=== PATIENT | female | born 1975 | race Caucasian/White ===

== ENCOUNTER → 2019-12-12 08:08 | Outpatient (CLI) | payer BC, SELFPAY ==
--- NOTE | 2019-12-12 08:19 | US_ITS ---
PROCEDURE: US TRANSVAGINAL CLINICAL INDICATION: LOWER ABD PAIN COMPARISON: No exams were available for comparison FINDINGS: UTERUS: 7cm x 5cmx 4cm with a combined endometrial thickness of 6.4mm LEFT OVARY: [id number] with a volume of 7.2ml. RIGHT OVARY: [id number] with a volume of 5.9ml. Small nabothian cysts are present. Along the lower aspect of the body of the uterus posteriorly there is a 3 x 2.5 x 1.9 cm area of decreased echogenicity consistent with fibroid. There is a 2nd 3 x 2 cm fibroid along the anterior aspect of the body of the uterus. No adnexal mass. Bilateral ovarian blood flow is noted with small bilateral follicles. There is a 1.8 cm right ovarian cyst. IMPRESSION: 1. Uterine fibroids 2. 1.8 cm right ovarian cyst Dictated b Nikhil Aguero MD 12/12/2019 17:11 Nikhil Aguero MD in [place] 12/12/2019 17:11
== END ==
PROVIDERS: PCP Nurse Practitioner; Visit Provider Family Medicine
DX: R10.30 Lower abdominal pain, unspecified (principal)
CPT/HCPCS: 76830

== ENCOUNTER → 2020-01-24 15:55 | Outpatient (CLI) | payer BC, SELFPAY ==
[2020-01-24 16:38] LABS: Basophils # 0.1 K/mm3 (0-0.2); Basophils % 0.5 % (0.1-2.0); Eosinophils # 0.3 K/mm3 (0.0-0.4); Eosinophils % 2.2 % (0.1-12.0); Hematocrit 37.9 % (37.0-47.0); Hemoglobin 13.6 g/dL (12.2-16.2); Lymphocytes # 3.2 K/mm3 (0.7-4.5); Lymphocytes % 28.6 % (10-50); Mean Corpuscular HGB Conc 35.8 g/dL (31.8-35.4); Mean Corpuscular Hemoglobin 31.6 pg (27.0-31.2); Mean Corpuscular Volume 88.2 fl (81-99); Mean Platelet Volume 8.7 fl (7.4-10.4); Monocytes # 0.4 K/mm3 (0.1-1.0); Monocytes % 3.9 % (1.7-9.3); Neutrophils # 7.2 K/mm3 (1.8-7.8); Neutrophils % 64.8 % (37.0-80.0); Platelet Count 234 K/mm3 (142-424); Red Cell Distribution Width 13.4 % (11.5-17.5); White Blood Count 11.1 K/mm3 (4.8-10.8)
[2020-01-24 17:27] LABS: Strep Scrn Group A (Rapid) Negative (Negative)
[2020-01-26 17:15] LABS: Covid-19 Nasal PCR Sendout UK NOT DETECTED
== END ==
PROVIDERS: PCP Nurse Practitioner; Visit Provider Nurse Practitioner
DX: Z03.818 Encounter for observation for suspected exposure to other biological agents ruled out (principal)
CPT/HCPCS: 85025; 87275; 87276; 87430; U0003

== ENCOUNTER → 2020-08-27 09:47 | Outpatient (CLI) | payer BC, SELFPAY ==
--- NOTE | 2020-08-27 09:51 | MM_ITS ---
PROCEDURE INFORMATION: Exam: MG Screening 3D Mammography Exam date and time: 08/27/2020 9:51 AM Age: 45 years old Clinical indication: Screening mammogram. Family history of breast carcinoma TECHNIQUE: Imaging protocol: Screening tomosynthesis and 2D mammography including computer-aided detection (CAD) when performed. COMPARISON: No relevant prior studies available. FINDINGS: MAMMOGRAPHY: Breast composition: There are scattered areas of fibroglandular density. Mass: No new suspicious masses. Architectural distortion: No suspicious distortion. Calcifications: No suspicious calcifications. Asymmetric density: There are 2 questionable asymmetries in the right breast. Dominant 2 cm asymmetry in the right upper outer quadrant, posterior depth, best seen on MLO frame 37. Additional 0.8 cm stellate asymmetry in the upper right breast, middle to posterior depth, only well seen on MLO frame 21. Skin thickening: None. Axillary adenopathy: None. IMPRESSION: Recommend right breast spot compression CC/MLO views and ultrasound for further evaluation of 2 questionable asymmetries in the upper right breast. No definite mammographic evidence of malignancy in the left breast. ASSESSMENT: BI-RADS Category 0: Incomplete- Need Additional Imaging Evaluation and/or Prior Mammograms for Comparison
== END ==
PROVIDERS: PCP Nurse Practitioner; Visit Provider Obstetrics & Gynecology
DX: Z12.31 Encounter for screening mammogram for malignant neoplasm of breast (principal)
CPT/HCPCS: 77063; 77067

== ENCOUNTER → 2020-09-08 14:36 | Outpatient (CLI) | payer BC, SELFPAY ==
--- NOTE | 2020-09-08 14:36 | MM_ITS ---
PROCEDURE: MM DIG MAMM DX UNILAT RT CAD Digital Breast Tomosynthesis Included CLINICAL INDICATION: abnormal mamm COMPARISON: MG MM DIG SCREENING MAMM BI W/CAD from 08/27/2020 US US BREAST RT COMPLETE from 09/08/2020 TECHNIQUE: ML, and spot compression CC and MLO images were obtained. FINDINGS: The breast is composed of scattered fibroglandular tissue. Finding 1: The spiculated appearing density in the right upper outer quadrant, persists on compression MLO images. No evident evidence of associated soft tissue mass is noted. Finding 2: Asymmetric density noted on the prior MLO and CC image demonstrates no discrete mass lesions. This most likely represents composite shadowing secondary to overlapping soft tissues. Corresponding ultrasound demonstrates a focal heterogeneous echogenic area at 10 o'clock position without evidence of suspicious mass lesions. Ultrasound otherwise demonstrate no focal abnormality. IMPRESSION: Probably benign finding. BI-RAD Category: 3 Probably Benign Finding Short Term Follow-up FOLLOW-UP: 6M 6Month Follow-up (A letter has been sent to the patient regarding results of the study.) Dictated by: Pamela Marroquin 09/10/2020 12:52 Pamela Marroquin in [facility] 09/10/2020 12:52
--- NOTE | 2020-09-08 14:36 | US_ITS ---
PROCEDURE: US BREAST RT COMPLETE CLINICAL INDICATION: Abnormal mamm COMPARISON: No exams were available for comparison FINDINGS: There is focal heterogeneously echogenic ill distinct area noted in the right breast at 10 o'clock position measuring 1.8 x 0.8 centimeters, demonstrates hyper echogenicities. No suspicious masses. Axillary lymph nodes measuring up to 1.9 times 0.8 centimeters with central fatty hilum and normal morphology. IMPRESSION: No suspicious masses. Probably benign finding. BI-RADS category 3. Ultrasound follow-up in six months is recommended. Dictated by: Pamela Marroquin 09/10/2020 12:54 Pamela Marroquin in [facility] 09/10/2020 12:54
== END ==
PROVIDERS: PCP Nurse Practitioner; Visit Provider Obstetrics & Gynecology
DX: R92.8 Other abnormal and inconclusive findings on diagnostic imaging of breast (principal)
CPT/HCPCS: 76641; 77061; 77065; G0279

== ENCOUNTER → 2020-12-07 16:18 | Outpatient (CLI) | payer BC, SELFPAY ==
--- NOTE | 2020-12-07 16:24 | XR_ITS ---
PROCEDURE: XR CHEST 2V CLINICAL HISTORY: CHEST PAIN, PALPITATIONS COMPARISON: No exams were available for comparison FINDINGS: The cardiomediastinal silhouette and pulmonary vascularity are within normal limits. The lungs are clear without infiltrates, suspicious nodules, or pleural effusions. No acute bony abnormalities. IMPRESSION: No acute findings. Dictated by: Nikhil Aguero MD 12/07/2020 16:45 Nikhil Aguero MD in [place] 12/07/2020 16:45
--- NOTE | 2020-12-07 16:42 | ECG_ITS ---
APPROVED REPORT Exam: Resting ECG HR:68 bpm ECG Measurements Heart Rate [address] 130 P 43 QRSd 90 QRS 79 QT 428 T 62 QTc 455 Conclusion Normal sinus rhythm Normal ECG Electronically signed by : Janusz Cheng MD 12/08/2020 21:04:41
== END ==
PROVIDERS: PCP Nurse Practitioner; Visit Provider Nurse Practitioner
DX: R07.9 Chest pain, unspecified (principal); R00.2 Palpitations
CPT/HCPCS: 71046; 93005; 93225; 93226

== ENCOUNTER → 2021-03-12 12:34 | Outpatient (CLI) | payer BC, SELFPAY ==
--- NOTE | 2021-03-12 12:34 | US_ITS ---
PROCEDURE: US BREAST RT COMPLETE CLINICAL INDICATION: abnormal mammogram COMPARISON: US US BREAST RT COMPLETE from 09/08/2020 MG MM DIG MAMM DX UNILAT RT CAD from 09/08/2020 FINDINGS: No suspicious mass. No cyst demonstrated. Previously noted areas of heterogeneous echogenicity in the outer right breast 10 o'clock are once again noted consistent with fibroglandular tissue. IMPRESSION: Benign findings. BI-RADS category 2, benign. Recommend resume bilateral screening mammogram in July of 2021 Dictated by: Nikhil Aguero MD 03/22/2021 07:52 Nikhil Aguero MD in [place] 03/22/2021 07:52
== END ==
PROVIDERS: PCP Nurse Practitioner; Visit Provider Obstetrics & Gynecology
DX: R92.8 Other abnormal and inconclusive findings on diagnostic imaging of breast (principal)
CPT/HCPCS: 76641

== ENCOUNTER → 2022-02-11 07:47 | Outpatient (CLI) | payer BC, SELFPAY ==
--- NOTE | 2022-02-11 08:09 | MM_ITS ---
PROCEDURE INFORMATION: Exam: MG Bilateral Diagnostic Breast Tomosynthesis Exam date and time: 02/11/2022 8:01 AM Age: 47 years old Clinical indication: Six-month follow-up has been recommended for asymmetries in the right breast, from 08/27 and 09/08/2020 and followed on sonography 09/08/2020 and03/12/2021, and screening. Her mother had breast cancer. TECHNIQUE: Imaging protocol: Bilateral Diagnostic tomosynthesis and 2D mammography including computer-aided detection (CAD) when performed. Unilateral or bilateral exam. COMPARISON: 1. MG MM DIG MAMM DX UNILAT RT CAD 09/08/2020 2:40 PM 2. MG MM DIG SCREENING MAMM BI W/CAD 08/27/2020 9:57 AM 3. US BREAST RT COMPLETE 03/12/2021 12:54 PM 4. US BREAST RT COMPLETE 09/08/2020 3:03 PM FINDINGS: MAMMOGRAPHY: Breast composition: There are scattered areas of fibroglandular density. Mass: None. Architectural distortion: None. Calcifications: No suspicious calcifications. Asymmetric density: Stable focal asymmetries in the right upper outer quadrant and in the right upper breast middle 3rd on the MLO, since 08/27/2020 (with related negative sonography 03/12/2021). Skin thickening: None. Axillary adenopathy: None. IMPRESSION: Stable focal asymmetries in the right upper outer quadrant and asymmetry in the right upper breast, clinical correlation to the upper breast is recommended, if negative if clinically, continued six-month follow-up right diagnostic mammogram is recommended. ASSESSMENT: BI-RADS Category 3: Probably benign
== END ==
PROVIDERS: PCP Nurse Practitioner; Visit Provider Obstetrics & Gynecology
DX: Z12.31 Encounter for screening mammogram for malignant neoplasm of breast (principal)
CPT/HCPCS: 77063; 77067

== ENCOUNTER → 2022-03-29 11:09 | Outpatient (CLI) | payer BC, SELFPAY ==
[2022-03-29 19:37] LABS: Adenovirus,PCR Not Detected (NotDetected); Bordetella Pertussis Not Detected (NotDetected); Chlamydophila Pneumoniae, PCR Not Detected (NotDetected); Coronavirus 19, PCR Not Detected (NotDetected); Coronavirus 229E Not Detected (NotDetected); Coronavirus NL63 Not Detected (NotDetected); Coronavirus OC43 Not Detected (NotDetected); Coronovirus HKU1,PCR Not Detected (NotDetected); Human Metapneumovirus Not Detected (NotDetected); Influenza AH1, 2009 Not Detected (NotDetected); Influenza AH1, PCR Not Detected (NotDetected); Influenza AH3,PCR Not Detected (NotDetected); Influenza B, PCR Not Detected (NotDetected); Mycoplasma Pneumoniae, PCR Not Detected (NotDetected); Parainfluenza 1, PCR Not Detected (NotDetected); Parainfluenza 2, PCR Not Detected (NotDetected); Parainfluenza 3, PCR Not Detected (NotDetected); Parainfluenza 4, PCR Not Detected (NotDetected); Respiratory Syncytial Virus Not Detected (NotDetected); Rhinovirus/Enterovirus Not Detected (NotDetected)
[2022-03-31 09:22] LABS: Influenza A, PCR Detected (NotDetected)
== END ==
PROVIDERS: PCP Nurse Practitioner; Visit Provider Nurse Practitioner
DX: J06.9 Acute upper respiratory infection, unspecified (principal); J10.1 Influenza due to other identified influenza virus with other respiratory manifestations
CPT/HCPCS: 87581; 87632; 87798; C9803; U0003; U0005

== ENCOUNTER → 2022-06-20 23:35 | Outpatient (CLI) | payer BC, SELFPAY ==
[2022-06-20 18:15] LABS: Adenovirus,PCR Not Detected (NotDetected); Bordetella Pertussis Not Detected (NotDetected); Chlamydophila Pneumoniae, PCR Not Detected (NotDetected); Coronavirus 19, PCR Not Detected (NotDetected); Coronavirus 229E Not Detected (NotDetected); Coronavirus NL63 Not Detected (NotDetected); Coronavirus OC43 Not Detected (NotDetected); Coronovirus HKU1,PCR Not Detected (NotDetected); Influenza A, PCR Not Detected (NotDetected); Influenza AH1, 2009 Not Detected (NotDetected); Influenza AH1, PCR Not Detected (NotDetected); Influenza AH3,PCR Not Detected (NotDetected); Influenza B, PCR Not Detected (NotDetected); Mycoplasma Pneumoniae, PCR Not Detected (NotDetected); Parainfluenza 1, PCR Not Detected (NotDetected); Parainfluenza 2, PCR Not Detected (NotDetected); Parainfluenza 3, PCR Not Detected (NotDetected); Parainfluenza 4, PCR Not Detected (NotDetected); Respiratory Syncytial Virus Not Detected (NotDetected); Rhinovirus/Enterovirus Not Detected (NotDetected)
[2022-06-20 22:40] LABS: Human Metapneumovirus Detected (NotDetected)
== END ==
PROVIDERS: PCP Nurse Practitioner; Visit Provider Nurse Practitioner
DX: J06.9 Acute upper respiratory infection, unspecified (principal); J02.9 Acute pharyngitis, unspecified; B97.81 Human metapneumovirus as the cause of diseases classified elsewhere
CPT/HCPCS: 87581; 87632; 87798; C9803; U0003; U0005

== ENCOUNTER 2023-08-03 10:01 | Outpatient (CLI) | payer BC, SELFPAY ==
--- NOTE | 2023-08-03 10:02 | MM_ITS ---
PROCEDURE INFORMATION: Exam: MG Bilateral Screening 3D Mammography Exam date and time: 08/03/2023 10:01 AM Age: 48 years old Clinical indication: Screening mammogram TECHNIQUE: Imaging protocol: Bilateral Screening tomosynthesis and 2D mammography including computer-aided detection (CAD) when performed. COMPARISON: No relevant prior studies available. FINDINGS: MAMMOGRAPHY: Breast composition: There are scattered areas of fibroglandular density. Mass: None. Architectural distortion: No new or suspicious architectural distortion. Calcifications: No new or suspicious calcifications are present Asymmetric density: No new or suspicious asymmetric density is present Skin thickening: None. Axillary adenopathy: None. IMPRESSION: No mammographic evidence of malignancy. Recommend annual screening mammography unless otherwise clinically indicated. ASSESSMENT: BI-RADS category 1: Negative.
== END 2023-08-03 23:59 ==
LOC: RAD 10:02
PROVIDERS: PCP Nurse Practitioner; Visit Provider Obstetrics & Gynecology
DX: Z12.31 Encounter for screening mammogram for malignant neoplasm of breast (principal)
CPT/HCPCS: 77063; 77067

== ENCOUNTER 2023-09-25 08:00 | Emergency (ER) | payer BC, SELFPAY ==
[2023-09-25 08:10] VITALS: BP 115/84; PULSE 68; RESP 20; TEMP 37.3; O2SAT 97; BMI 34.7
[2023-09-25 08:23] LABS: UTC Strep Screen (Rapid) Positive (Negative)
--- NOTE | 2023-09-25 08:32 | ED_ITS ---
Discharge Plan Disposition Patient Disposition: Home, Self-Care Condition: Good Prescriptions Prescriptions: New azithromycin [Zithromax Z-Rowdy] 250 mg tablet See Rx Instructions .ROUTE .COMPLEX 5 Days Qty: 6 0RF Rx Instructions: For 250 mg dose pack: take 500 mg today (day 1), then 250 mg for 4 days (days 2-5) No Action fluoxetine 40 mg capsule 40 mg PO DAILY Patient Comments: TAKE 1 CAPSULE BY MOUTH EVERY DAY trazodone 50 mg tablet 50 mg PO HS PRN (Reason: Sleep) buspirone 15 mg tablet 15 mg PO BID Patient Comments: TAKE 1 TABLET BY MOUTH TWICE A DAY Referrals Follow up/Referrals: Sofia Celestin APRN [Primary Care Provider] - See instructions Activity Restrictions/Add. Instructions Additional Instructions/Restrictions: *Monitor Temp, Over the counter Motrin or Tylenol as directed/as needed Tylenol every 4 hours and Motrin every 6 hours (as long as your family doctor has told you that you can take it) for fever or pain. and straight to ER if unable to lower temp less than 101.0 after medication given *Warm salt water gargles may help to soothe the throat *Throat Lozenges? *Warm fluids like tea with honey may help to soothe the throat? *Sleep elevated *Humidifier/Vaporizer *If you did not take Penicillin shot or was unable to, start taking antibiotic immediately and make sure that you take it for the FULL length of time although you should start to feel better in 24-48 hours *change toothbrush and toothpaste 24-48 hours after starting to take antibiotics so you do not reinfect yourself Monitor Temp. Tylenol and/or Ibuprofen as needed. ER if fever is no less than 101 despite alternating Tylenol and Ibuprofen * Encourage fluids, water, Gatorade, powerade, pedialyte if /toddler/or child *Cold fluids, popsicles and ice cream may feel good on his throat Follow up IMMEDIATELY for new or worsening symptoms or no Noticeable improvement over the next 48-72 hours. 911 for difficulty breathing or swallowing Clinical Impressions Clinical Impression: Strep throat Instructions Patient Instructions: DI for Strep Throat, Strep Throat, Azithromycin Discharge ED Provider: Dinora Norwood [facility] [place] HPI General Stated complaint: sore throat, headaches, body aches Mode of Arrival: Ambulatory Source of Information: Patient Limitations: No Limitations Time Seen by Provider: 09/25/23 08:32 Description of Symptoms (Recalled from Triage Doc. by RN): PATIENT C/O SORE THROAT, EAR ACHE, AND BODY ACHES SINCE YESTERDAY HEENT Symptoms (Recalled from RN notes): Yes Resp Symptoms (Recalled from RN notes): No Skin Symptoms (Recalled from RN notes): No MS Symptoms (Recalled from RN notes): No Functional Status (Recalled from RN notes): WNL History of Present Illness Provider Complaint: Patient states that she started yesterday with sore throat, pain and pressure in ears, and body aches since yesterday States that last night her throat woke up her up hurting so bad so today she came in to get checked Related Data Home Medications Medication Instructions Recorded Confirmed fluoxetine 40 mg capsule 40 mg PO DAILY 03/29/22 09/25/23 trazodone 50 mg tablet 50 mg PO HS PRN Sleep 03/29/22 09/25/23 buspirone 15 mg tablet 15 mg PO BID 06/19/23 09/25/23 Previous Rx's Medication Instructions Recorded azithromycin 250 mg tablet See Rx Instructions PO .COMPLEX 5 09/25/23 (Zithromax Z-Rowdy) days #6 tabs Allergies Allergy/AdvReac Type Severity Reaction Status Date / Time morphine Allergy Verified 09/25/23 08:28 amoxicillin AdvReac Nausea Verified 07/17/23 15:54 Worker's Comp Is this a Worker's Comp case?: No [facility] Disclaimer: The information contained in this section may have been updated after the patient was seen, as this information can be updated by other users. Medical History (Updated 09/25/23 @ 08:38 by Dinora Norwood APRN) Migraine with aura Fracture of right ankle Wrist fracture Dog bite Family History Other Alcoholism Cancer Coronary artery disease Diabetes FHx: mental illness Substance abuse Social History Smoking Status: Never smoker alcohol intake: never current occupational status: employed Travel in the last 8 weeks: None ROS Obtained: Yes All systems reviewed & no additional complaints except as documented and Yes Systems reviewed as appropriate & no additional complaints except as documented Constitutional Constitutional: Reports system reviewed and no additional complaints, except as documented, Reports as per HPI, Reports body ache, Reports chills and Reports headache(s) ENT Ears, Nose, Mouth, and Throat: Reports system reviewed and no additional complaints, except as documented, Reports as per HPI, Reports otalgia, Reports headache(s) and Reports sore throat Cardiovascular Cardiovascular: Reports system reviewed and no additional complaints, except as documented and Reports as per HPI Respiratory Respiratory: Reports system reviewed and no additional complaints, except as documented and Reports as per HPI Gastrointestinal Gastrointestingal: Reports system reviewed and no additional complaints, except as documented and as per HPI Neurologic Neurologic: Reports headache(s) Physical Exam General General appearance: alert and in no apparent distress ENT ENT exam: Present mucous membranes moist Expanded ENT Exam TM/Canal exam: Bilateral TM: bulging Throat exam: Present tonsillar erythema and tonsillar exudate Respiratory Respiratory exam: Present normal lung sounds bilaterally; Absent respiratory distress or wheezes Cardiovascular Cardiovascular exam: Present regular rate, normal rhythm and normal heart sounds Neurological Exam Neurological exam: Present alert, oriented X3 and normal gait Medical Decision Making Jose Inquiry Pt receiving controlled substance: No Jose was queried for this patient: No Vital Signs: 09/25/23 08:10 Temperature 99.1 F Temperature Source Oral Pulse Rate [Left Brachial] 68 Respiratory Rate 20 Blood Pressure [Left Arm] 115/84 Blood Pressure Mean [Left Arm] 94 Blood Pressure Source [Left Arm] Automatic Cuff Blood Pressure Position [Left Arm] Sitting 02 Sat by Pulse Oximetry 97 Oxygen Delivery Method Room Air Lab Data Lab results reviewed: Yes I reviewed the patient's lab results. Lab Results 09/25/23 08:15: Strep Scn Rapid Clinic Positive A
[2023-09-25 08:41] VITALS: BP 115/84; PULSE 68; RESP 20; TEMP 37.3; O2SAT 97
== END 2023-09-25 08:43 | disposition home or self-care (01) ==
PROVIDERS: Emergency Provider Nurse Practitioner; PCP Nurse Practitioner
DX: J02.0 Streptococcal pharyngitis (principal); R07.0 Pain in throat; H92.03 Otalgia, bilateral
CPT/HCPCS: 87880; 99204; 99212; G0463

== ENCOUNTER 2023-09-27 09:35 | Outpatient (CLI) | payer BC, SELFPAY ==
[2023-09-27 11:17] LABS: Alanine Aminotransferase 20 U/L (12-78); Albumin Level 4.3 g/dl (3.5-5.0); Albumin/Globulin Ratio 1.5 (1.1-1.8); Alkaline Phosphatase 60 U/L (38-126); Anion Gap 13.6 mEq/L (5-15); Aspartate Amino Transferase 31 U/L (14-36); Bilirubin,Total 0.4 mg/dl (0.2-1.3); Blood Urea Nitrogen 15 mg/dl (7-17); Calcium 9.4 mg/dl (8.4-10.2); Carbon Dioxide 27 mmol/L (22.0-30.0); Chloride 101 mmol/L (98-107); Estimated Glomerular Filt Rate 90 ml/min (>60); GFR (African American) 109 ML/MIN (>60); Globulin 2.8 g/dL (1.3-3.2); Glucose 86 mg/dl (74-100); Potassium 4.6 mmoL/L (3.5-5.1); Sodium 137 mmol/L (136-145); Total Protein,Serum 7.1 g/dl (6.3-8.2)
== END 2023-09-27 23:59 | disposition home or self-care (01) ==
LOC: LAB 09:36
PROVIDERS: PCP Nurse Practitioner; Visit Provider Obstetrics & Gynecology
DX: N95.1 Menopausal and female climacteric states (principal)
CPT/HCPCS: 36415; 80053

== ENCOUNTER 2024-02-04 07:59 | Emergency (ER) | payer BC, SELFPAY ==
[2024-02-04 08:10] VITALS: BP 139/65; PULSE 114; RESP 20; TEMP 38.2; O2SAT 100; BMI 33.5
[2024-02-04 08:17] LABS: UTC Strep Screen (Rapid) Positive (Negative)
[2024-02-04 08:19] LABS: UTC Influenza A Antigen Negative (Negative)
[2024-02-04 08:20] LABS: UTC Influenza B Antigen Negative (Negative)
[2024-02-04] MEDS: cefTRIAXone 1GM VIAL 1 GM IM (08:26)
[2024-02-04] MEDS: LIDOCAINE 1% 5ML PF VIAL IM (08:27)
[2024-02-04] MEDS: DEXAMETHASONE 4MG/ML 1ML VIAL 8 MG IM (08:27)
--- NOTE | 2024-02-04 08:28 | EXP.UTC ---
Discharge Plan Disposition Patient Disposition: Home, Self-Care Condition: Good Prescriptions Prescriptions: New prednisone 20 mg tablet 20 mg PO BID 3 Days Qty: 6 0RF benzonatate 100 mg capsule 100 mg PO TIDP PRN (Reason: Cough) Qty: 30 0RF cefdinir 250 mg/5 mL suspension for reconstitution 300 mg PO BID 10 Days Qty: 120 0RF No Action fluoxetine 40 mg capsule 40 mg PO DAILY Patient Comments: TAKE 1 CAPSULE BY MOUTH EVERY DAY trazodone 50 mg tablet 50 mg PO HS PRN (Reason: Sleep) buspirone 15 mg tablet 15 mg PO BID Patient Comments: TAKE 1 TABLET BY MOUTH TWICE A DAY Veozah 45 mg tablet 45 mg PO DAILY Qty: 30 11RF methocarbamol 500 mg tablet 500 mg PO TID PRN (Reason: muscle spasm) Qty: 14 0RF fluticasone propionate [Flonase Allergy Relief] 50 mcg/actuation spray,suspension 2 spray intranasal DAILY Qty: 16 0RF Rx Instructions: administer into each nostril daily azithromycin [Zithromax Z-Rowdy] 250 mg tablet See Rx Instructions .ROUTE .COMPLEX 5 Days Qty: 6 0RF Rx Instructions: For 250 mg dose pack: take 500 mg today (day 1), then 250 mg for 4 days (days 2-5) methylprednisolone [Medrol (Rowdy)] 4 mg tablets,dose pack See Rx Instructions .Route .COMPLEX 6 Days Qty: 21 0RF Rx Instructions: taper pack; fluconazole 150 mg tablet 150 mg PO ONCE 1 Days Qty: 1 0RF Referrals Follow up/Referrals: Sofia Celestin APRN [Primary Care Provider] - See instructions Activity Restrictions/Add. Instructions Additional Instructions/Restrictions: Drink plenty of fluids. Take tylenol or ibuprofen for pain or fever. Take the medications as directed. Follow up with your regular doctor. GO TO THE ER FOR ANY WORSENING SYMPTOMS Throw your tooth brush away and get a new one. Don't start the oral steroids (medrol dose pack) until tomorrow since you had the shot here Clinical Impressions Clinical Impression: Strep throat Stand Alone Forms Stand Alone Forms: Work/School Release Instructions Patient Instructions: Strep Throat, Ceftriaxone Injection, Dexamethasone Injection Print Language Print Language: Uzbek Discharge ED Provider: Frankie Schwartz [facility] [place] HPI General Stated complaint: sore throat, vomiting, fever, body aches Mode of Arrival: Ambulatory Source of Information: Patient Time Seen by Provider: 02/04/24 08:19 Description of Symptoms (Recalled from Triage Doc. by RN): SORE THROAT, N/V, BODY ACHES, CHILLS HEENT Symptoms (Recalled from RN notes): Yes Resp Symptoms (Recalled from RN notes): Yes Skin Symptoms (Recalled from RN notes): No MS Symptoms (Recalled from RN notes): No Functional Status (Recalled from RN notes): WNL History of Present Illness Provider Complaint: She states that for the past 2 days she has had sore throat, chills, body aches and low grade fever. Related Data Home Medications ?Medication ?Instructions ?Recorded ?Confirmed fluoxetine 40 mg capsule 40 mg PO DAILY 03/29/22 12/31/23 trazodone 50 mg tablet 50 mg PO HS PRN Sleep 03/29/22 12/31/23 buspirone 15 mg tablet 15 mg PO BID 06/19/23 12/31/23 Previous Rx's ?Medication ?Instructions ?Recorded fezolinetant 45 mg tablet (Veozah) 45 mg PO DAILY #30 tabs 09/27/23 azithromycin 250 mg tablet See Rx Instructions PO .COMPLEX 5 12/31/23 (Zithromax Z-Rowdy) days #6 tabs fluconazole 150 mg tablet 150 mg PO ONCE 1 day #1 tab 12/31/23 fluticasone propionate 50 2 spray intranasal DAILY #16 grams 12/31/23 mcg/actuation nasal spray,suspension (Flonase Allergy Relief) methocarbamol 500 mg tablet 500 mg PO TID PRN muscle spasm #14 12/31/23 tabs methylprednisolone 4 mg tablets in See Rx Instructions .Route 12/31/23 a dose pack (Medrol (Rowdy)) .COMPLEX 6 days #21 tabs benzonatate 100 mg capsule 100 mg PO TIDP PRN Cough #30 caps 02/04/24 cefdinir 250 mg/5 mL oral 300 mg (6 mL) PO BID 10 days #120 02/04/24 suspension mL prednisone 20 mg tablet 20 mg PO BID 3 days #6 tabs 02/04/24 Allergies Allergy/AdvReac Type Severity Reaction Status Date / Time morphine Allergy Verified 09/27/23 09:00 amoxicillin AdvReac Nausea Verified 09/27/23 09:00 Worker's Comp Is this a Worker's Comp case?: No [facility] Disclaimer: The information contained in this section may have been updated after the patient was seen, as this information can be updated by other users. Medical History (Updated 02/04/24 @ 08:30 by Frankie Schwartz APRN) Perimenopausal symptom Amenorrhea Depression Anxiety Migraine with aura Fracture of right ankle Wrist fracture Surgical History (Updated 09/27/23 @ 09:09 by YAHAIRA Bloom) History of endometrial ablation Family History Other Alcoholism Cancer Coronary artery disease Diabetes FHx: mental illness Substance abuse Social History Smoking Status: Never smoker alcohol intake: never current occupational status: employed Travel in the last 8 weeks: None ROS Obtained: Yes All systems reviewed & no additional complaints except as documented Constitutional Constitutional: Reports chills and Reports fever(s) Eyes Eyes: Denies eye discharge ENT Ears, Nose, Mouth, and Throat: Reports as per HPI Cardiovascular Cardiovascular: Denies chest pain Respiratory Respiratory: Denies chest congestion and Reports cough Gastrointestinal Gastrointestingal: Reports nausea; Denies abdominal pain, constipation, cramping, diarrhea or vomiting Musculoskeletal Musculoskeletal: Denies arthralgias Integumentary/Breasts Skin/Breast: Denies rash Neurologic Neurologic: Denies paresthesias Physical Exam General General appearance: alert and in no apparent distress Head Head exam: atraumatic, normocephalic and normal inspection Eye Eye exam: Present normal appearance, PERRL and EOMI ENT ENT exam: Present mucous membranes moist and normal external ear exam Expanded ENT Exam TM/Canal exam: Bilateral TM: erythema and bulging Nose exam: Absent sinus tenderness Mouth exam: Present normal external inspection; Absent drooling Teeth exam: Present normal inspection Throat exam: Present tonsillar erythema, tonsillomegaly and tonsillar exudate Neck Neck exam: Present normal inspection, full ROM and trachea midline; Absent tenderness, meningismus or lymphadenopathy Chest Chest inspection: Present normal inspection and symmetric chest wall rise; Absent tenderness Respiratory Respiratory exam: Present normal lung sounds bilaterally; Absent respiratory distress, wheezes, stridor or accessory muscle use Cardiovascular Cardiovascular exam: Present regular rate and normal rhythm; Absent systolic murmur or diastolic murmur Abdominal Exam Abdominal exam: Present soft and normal bowel sounds; Absent distention, tenderness, guarding, rebound or rigidity Extremities Exam Extremities exam: Present normal inspection and normal capillary refill; Absent calf tenderness Back Exam Back exam: Present normal inspection and full ROM; Absent tenderness, CVA tenderness (R) or CVA tenderness (L) Neurological Exam Neurological exam: Present alert, oriented X3 and CN II-XII intact Psychiatric Psychiatric exam: Present normal affect and normal mood Skin Skin exam: Present warm, dry, intact and normal color Medical Decision Making Medical Records Medical records reviewed: No I reviewed the patient's medical records. Screening: Per USPSTF and CDC recommendations, given the prevalence of disease in our region, it is our hospital?s policy to screen for HIV and viral Hepatitis for all patients aged 18 and over and those with ongoing risk factors. Jose Inquiry Pt receiving controlled substance: No Vital Signs: 02/04/24 08:10 Temperature 100.8 F H Temperature Source Oral Pulse Rate [Left Radial] 114 H Respiratory Rate 20 Blood Pressure [Left Arm] 139/65 Blood Pressure Mean [Left Arm] 89 02 Sat by Pulse Oximetry 100 Lab Data Lab results reviewed: Yes I reviewed the patient's lab results. Lab Results 02/04/24 08:13: Influenza Type A Ag Negative, Influenza Type B Ag Negative, Strep Scn Rapid Clinic Positive A Orders (Tests/Meds): ED MEDICATIONS Discontinued Medications Generic Name Dose Route Start Last Admin Trade Name Salvadorq PRN Reason Stop Dose Admin Ceftriaxone Sodium 1 gm 02/04/24 08:19 02/04/24 08:26 Ceftriaxone 1gm Vial IM 02/04/24 08:20 1 gm ONCE ONE Administration Dexamethasone Sodium Phosphate 8 mg 02/04/24 08:19 02/04/24 08:27 Dexamethasone 4mg/Ml 1ml Vial IM 02/04/24 08:20 8 mg ONCE ONE Administration Lidocaine HCl 0 ml 02/04/24 08:19 02/04/24 08:27 Lidocaine 1% 5ml Pf Vial IM 02/04/24 08:20 2 ml ONCE ONE Administration
[2024-02-04 08:33] VITALS: BP 139/65; PULSE 114; RESP 20; TEMP 38.2
== END 2024-02-04 08:39 | disposition home or self-care (01) ==
PROVIDERS: Emergency Provider Nurse Practitioner Family; PCP Nurse Practitioner
DX: J02.0 Streptococcal pharyngitis (principal)
CPT/HCPCS: 87804; 87880; 96372; 99213; G0381; J0696; J1100

== ENCOUNTER 2024-05-25 11:03 | Outpatient (CLI) | payer BC, SELFPAY ==
[2024-05-25 12:09] LABS: Iron 104 ug/dL (37-170)
[2024-05-25 12:19] LABS: Total Iron Binding Capacity 307 ug/dL (265-497)
[2024-05-25 12:41] LABS: Thyroid Stimulating Hormone 1.72 uIU/mL (0.465-4.68)
[2024-05-25 12:46] LABS: Ferritin 61.8 ng/ml (6.24-137)
[2024-05-26 08:08] LABS: Transferrin 236 mg/dL (192-364)
== END 2024-05-25 23:59 | disposition home or self-care (01) ==
LOC: LAB 11:05
PROVIDERS: PCP Nurse Practitioner; Visit Provider Obstetrics & Gynecology
DX: L65.9 Nonscarring hair loss, unspecified (principal)
CPT/HCPCS: 36415; 82728; 83540; 83550; 84443; 84466

== ENCOUNTER 2024-10-17 10:37 | Outpatient (CLI) | payer BC, SELFPAY ==
--- OUTSIDE RECORDS SUMMARY | 2024-10-17 10:48 | XMS_ITS | Clinical Summary ---
Author Organization [facility] Address [address] [facility] [place] [address] Phone Care Team Providers Care Duck Farmer Name Role Phone Sofia Celestin APRN Primary Care Provider [phone] Allergies Active Allergy Reactions Criticality Noted Date Comments Morphine 03/13/2012 Itching/vomiting Penicillins 11/02/2013 Medications * This document contains information received from the source organization and may not represent a complete record from that organization. diclofenac (VOLTAREN) 75 mg Oral Tablet, Delayed Release (E.C.)Indications:A cute pain of left knee,Osteoarthritis of left knee, unspecified osteoarthritis type Take 1 Tablet by mouth 2 times daily. 60 Tablet 2 3 Active progesterone (PROMETRIUM) 100 mg Oral Capsule Take 100 mg by mouth daily. 4 Active estradioL (CLIMARA) 0.1 mg/[address] 1 Patch onto the skin once a week. 4 Active FLUoxetine (PROZAC) 40 mg Oral Capsule Take 1 Capsule by mouth daily. 90 Capsule 1 4 Active busPIRone (BUSPAR) 10 mg Oral Tablet TAKE 2 TABLETS BY MOUTH TWICE A DAY 360 Tablet 5 Active traZODone (DESYREL) 50 mg Oral Tablet Take 1 Tablet by mouth nightly as needed. for sleep 90 Tablet 1 5 Active hydrOXYzine (ATARAX) 10 mg Oral Tablet Take 0.5-1 Tablets by mouth 2 times daily as needed for Anxiety. 60 Tablet 1 5 Active Active Problems Problem Noted Date Diagnosed Date Sleep disturbance 02/12/2019 Alcohol use disorder, severe , in sustained remission, dependence 11/15/2018 Recurrent major depressive disorder, in full rem ission 11/15/2018 SUSANNE (generalized anxiety disorder) 11/15/2018 Surgical History Surgery Date Site/Laterality Comments ORTHOPEDIC SURGERY 05/01/2008 - 04/30/2009 right wrist ANKLE SURGERY 05/01/1993 - 04/30/1994 WRIST ARTHROTOMY 10/11/2018 Right RIGHT REMOVAL OF WRIST HARDWARE, TENOSYNOVECTOMY AND CARPAL TUNNEL RELEASE; Surgeon: Frankie Gonzáles MD; Location: [facility]; Service: Hand WRIST TENOLYSIS 10/11/2018 Right Surgeon: Frankie Gonzáles MD; Location: [facility]; Service: Hand CARPAL TUNNEL RELEASE 10/11/2018 Right Surgeon: Frankie Gonzáles MD; Location: [facility]; Service: Hand Medical History Medical History Date Comments Depression Headache migraines Social History Tobacco Use Types Packs/Day Years Used Date Smoking Tobacco: Former Cigarettes Smokeless Tobacco: Never Tobacco Cessation:Counseling Given: Not Answered Alcohol Use Standard Drinks/Week Comments Yes 0 (1 standard drink = 0.6 oz pur e alcohol) occasionally Comments No Sex and Gender Information Value Date Recorded Sex Assigned at Not on file Legal Sex Female 9:07 AM EDT Gender Identity Not on file Sexual Orientation Not on file Obstetrics History Last Filed Vital Signs Vital Sign Reading Time Taken Comments Blood Pressure 113/74 10/11/2018 2:06 PM EDT Pulse 90 10/11/2018 2:06 PM EDT Temperature 36.3 C (97.3 F) 10/11/2018 2:06 PM EDT Respiratory Rate 18 10/11/2018 2:06 PM EDT Oxygen Saturation 96% 10/11/2018 2:06 PM EDT Inhaled Oxygen Concentration - - Weight 99.8 kg (220 lb) 08/01/2022 10:18 AM EDT Height 167.6 cm (5' 6 ) 08/01/2022 10:18 AM EDT Body Mass Index 35.51 08/01/2022 10:18 AM EDT Plan of Treatment Health Maintenance Due Date Last Done Comments Annual Wellness Exam 02/01/1980 Hepatitis B Vaccine (1 of 3 - 19+ 3-dose series) 02/01/1996 Pneumococcal Vaccine 0-49 (1 of 2 - PCV) 02/01/1996 HPV/Pap Cotest 2007 Breast Cancer Screening 2017 DTaP/TDaP/Td (6 - Td or Tdap) 01/09/2022 01/10/2012, 07/07/1996, 12/18/1992, Additional history exists Cologuard 2022 Colon Cancer Screening 2022 Colonoscopy 2022 FIT 2022 Sigmoidoscopy 2022 Virtual Colonography 2022 COVID-19 Vaccine ( season) 2023 01/18/2022, 03/19/2021, 06/26/2020, Additional history exists Influenza Vaccine (Season Ended) 2024 01/19/2021, 01/16/2018 Cervical Cancer Screening 01/14/2025 Pap Smear 01/14/2025 01/14/2022 Meningococcal B Vaccine Aged Out No l onger eligible based on patient's age to complete this topic Procedures Procedure Name Priority Date/Time Associated Diagnosis Comments PAP SMEAR Routine 01/14/2022 from Last 3 Months or Most Recently Relevant to Health Maintenance Results * PAP SMEAR (01/14/2022) us Historical Provider HEALTH MAINTENANCE Final Res ult [facility] from Last 3 Months or Most Recently Relevant to Health Maintenance Insurance [employer] PPO ANTHEM PPO ANTHEM PPO ANTHEM PPO Care Teams Duck Farmer Relationship Specialty Start Date End Date Sofia Celestin APRN [address] [facility] [address] [place] [address] PCP - General Nurse Practitioner 10/09/18
--- NOTE | 2024-10-17 11:00 | MM_ITS ---
PROCEDURE INFORMATION: Exam: MG Bilateral Screening 3D Mammography Exam date and time: 10/17/2024 10:41 AM Age: 49 years old Clinical indication: Screening exam. TECHNIQUE: Imaging protocol: Bilateral Screening tomosynthesis and 2D mammography including computer-aided detection (CAD) when performed. COMPARISON: MG MM DIG SCREENING MAMM BI W/CAD 08/03/2023 10:01 AM FINDINGS: MAMMOGRAPHY: Breast composition: There are scattered areas of fibroglandular density. Mass: No suspicious masses. Architectural distortion: None. Calcifications: No suspicious calcifications. Asymmetric density: None. Skin thickening: None. Axillary adenopathy: None. IMPRESSION: No mammographic evidence of malignancy. Annual screening is recommended unless otherwise clinically indicated. ASSESSMENT: BI-RADS Category 1: Negative.
== END 2024-10-17 23:59 | disposition home or self-care (01) ==
LOC: RAD 10:38
PROVIDERS: PCP Nurse Practitioner; Visit Provider Obstetrics & Gynecology
DX: Z12.31 Encounter for screening mammogram for malignant neoplasm of breast (principal); R92.323 Mammographic fibroglandular density, bilateral breasts
CPT/HCPCS: 77063; 77067